=== PATIENT | male | born 1930 | race Caucasian/White ===

== ENCOUNTER 2017-01-24 07:41 | Day surgery (SDC) | payer MEDICARE, OTHER ==
--- NOTE | ~2017-01-24 | EGD ---
EGD REPORT [facility] [address] [address] NAME: ROSS AYALA : 32 STATUS : REG [facility] [place] PAT#: [id number] AGE: 86 ADM/REG DATE : 01/24/17 MR#: [id number] REPORT SERV DATE: 01/24/17 DICTATED BY: VIRI HEBERT III DATE: 01/24/17 REPORT STATUS : Draft [facility] DATE: 01/24/17 Endoscopy Center Patient Name: Ross Ayala Date of : 1930 Attending MD: VIRI HEBERT III, MD Procedure Date No Time: 01/24/2017 Procedure: Upper GI endoscopy Indications: Surveillance for malignancy due to personal history of Curiel's esophagus, Heartburn Medicines: Propofol per Anesthesia Complications: No immediate complications. Procedure: Pre-Anesthesia Assessment: - ASA Grade Assessment: II - A patient with mild systemic disease. After obtaining informed consent, the endoscope was passed under direct vision. Throughout the procedure, the patient's blood pressure, pulse, and oxygen saturations were monitored continuously. The GIF [id number] was introduced through the mouth, and advanced to the third part of duodenum. The upper GI endoscopy was accomplished with ease. The patient tolerated the procedure well. Findings: There were esophageal mucosal changes secondary to established short-segment Curiel's disease present at the gastroesophageal junction. The maximum longitudinal extent of these mucosal changes was 0.6 cm in length. Biopsies were taken with a cold forceps for histology. A medium-sized hiatus hernia was present. The examined duodenum was normal. Impression: - Esophageal mucosal changes secondary to established short-segment Curiel's disease. Biopsied. - Hiatus hernia. - Normal examined duodenum. Recommendation: - Patient has a contact number available for emergencies. The signs and symptoms of potential delayed complications were discussed with the patient. Return to normal activities tomorrow. Written discharge instructions were provided to the patient. - Discharge patient to home. - Return to previous diet. - Follow an antireflux regimen. - Continue present medications. EGD REPORT [address] [address] NAME: ROSS AYALA : [birth year] STATUS : REG [facility] [place] PAT#: [id number] AGE: 86 ADM/REG DATE : 01/24/17 MR#: [id number] REPORT SERV DATE: 01/24/17 DICTATED BY: VIRI HEBERT III DATE: 01/24/17 REPORT STATUS : Draft TRANSCRIBED BY: Senor Sirloin DATE: 01/24/17 - Await pathology results. Procedure Code(s): --- Professional --- 73775, Esophagogastroduodenoscopy, flexible, transoral; with biopsy, single or multiple Diagnosis Code(s): --- Professional --- K22.70, Curiel's esophagus without dysplasia K44.9, Diaphragmatic hernia without obstruction or gangrene R12, Heartburn CPT copyright 2013 [employer]. All rights reserved. The codes documented in this report are preliminary and upon paint roller covermaker review may be revised to meet current compliance requirements. VIRI HEBERT III, MD 01/24/2017 9:37 AM This report has been signed electronically. Number of Addenda: 0 Note Initiated On: 01/24/2017 9:21 AM Scope Withdrawal Time 0 hours 0 minutes 0 seconds [id number] [place] [address]
[~2017-01-24 07:41] MED LIST: ASAB PO; ASABAYER PO; CADUET5 MG/40 MG PO; LUMIGAN OPH; PRILO PO; VIB50 PO; ZOLOFT25 MG PO
== END 2017-01-24 23:59 | disposition home health service (06) ==
LOC: DMU 07:41
PROVIDERS: Internal Medicine Gastroenterology
PROC: 0DB48ZX Excision of Esophagogastric Junction, Via Natural or Artificial Opening Endoscopic, Diagnostic (ICD-10-PCS; principal; 2017-01-24 09:30)
DX: K44.9 Diaphragmatic hernia without obstruction or gangrene (principal); K21.9 Gastro-esophageal reflux disease without esophagitis; E78.00 Pure hypercholesterolemia, unspecified; I10 Essential (primary) hypertension; Z88.5 Allergy status to narcotic agent; Z87.891 Personal history of nicotine dependence; Z86.010 Personal history of colon polyps; Z98.41 Cataract extraction status, right eye; Z98.42 Cataract extraction status, left eye; Z98.890 Other specified postprocedural states
CPT/HCPCS: 88305